=== PATIENT | female | born 1995 | race Caucasian/White ===

== ENCOUNTER 2017-01-16 16:19 | Emergency (ER) | payer SELFPAY ==
[2017-01-16 19:41] LABS: Bilirubin,Urine NEG (Negative); Blood,Urine SM (Negative); Ketones,Urine NEG (Negative); Leukocyte Esterase,Urine LG (Negative); Mucus,Urine FEW /HPF; Nitrite,Urine NEG (Negative); Urobilinogen,Urine < 2.0 mg/dL (<2.0)
[2017-01-16 19:42] LABS: WBC,Urine > 182.0 /HPF (0.0-6.0)
[2017-01-16] MEDS ORDERED: XYLOCAINE 1% MPF 5 mL INFILTRATI ONE (19:52)
[2017-01-16] MEDS ORDERED: ROCEPHIN IM ONE (19:52)
[2017-01-16] MEDS ORDERED: MACROBID PO ONE (19:57)
--- NOTE | 2017-01-16 20:00 | Emergency Department Report ---
ED Female HPI - General Chief complaint: Urogenital-Female Stated complaint: ABD PAIN Time Seen by Provider: 01/16/17 19:43 Source: patient Mode of arrival: Ambulatory Limitations: No Limitations - History of Present Illness Initial comments: 21-year-old female significant past medical history presents with 1-1/2-2 weeks of dysuria, slight increased urinary frequency and suprapubic burning sensation. Patient denies any vaginal discharge no vaginal bleeding. Denies any nausea or vomiting no fever or chills patient is awake alert and oriented 3 does not look toxic fully ambulatory fully lucid. Patient states that the primary reason she came today is because she felt slight burning sensation while P and today worse than she has no last week. Pain does not radiate, worse with urination. Patient denies any vaginal bleeding. Last menstrual period December 12 2016 Complaint: dysuria Onset/Timin -: week(s) Location: suprapubic Radiation: non-radiating Severity: mild Quality: burning Consistency: intermittent Worsens with: urination Associated Symptoms: denies other symptoms - Related Data Sexually active: Yes Previous Rx's Medication Instructions Recorded Last Taken Type Nitrofurantoin Worth/M-Cryst 100 mg PO Q12HR #14 capsule 01/16/17 Unknown Rx [Macrobid CAP] Phenazopyridine [Pyridium] 100 mg PO TID #6 tab 01/16/17 Unknown Rx Allergies Allergy/AdvReac Type Severity Reaction Status Date / Time No Known Allergies Allergy Unverified 01/16/17 17:18 ED Review of Systems ROS: Stated complaint: ABD PAIN Other details as noted in HPI Constitutional: denies: chills, fever Eyes: denies: eye pain, eye discharge, vision change ENT: denies: ear pain, throat pain Respiratory: denies: cough, shortness of breath, wheezing Cardiovascular: denies: chest pain, palpitations Endocrine: no symptoms reported Gastrointestinal: denies: abdominal pain, nausea, diarrhea Genitourinary: dysuria. denies: urgency, discharge Musculoskeletal: denies: back pain, joint swelling, arthralgia Skin: denies: rash, lesions Neurological: denies: headache, weakness, paresthesias Psychiatric: denies: anxiety, depression Hematological/Lymphatic: denies: easy bleeding, easy bruising ED Past Medical Hx - Past Medical History Previous Medical History?: No - Surgical History Past Surgical History?: No - Social History Smoking Status: Never Smoker Substance Use Type: None - Medications Home Medications: Home Medications Medication Instructions Recorded Confirmed Last Taken Type Nitrofurantoin Worth/M-Cryst 100 mg PO Q12HR #14 capsule 01/16/17 Unknown Rx [Macrobid CAP] Phenazopyridine [Pyridium] 100 mg PO TID #6 tab 01/16/17 Unknown Rx ED Physical Exam - General Limitations: No Limitations General appearance: alert, in no apparent distress - Head Head exam: Present: atraumatic, normocephalic - Eye Eye exam: Present: normal appearance, PERRL, EOMI - ENT ENT exam: Present: mucous membranes moist - Neck Neck exam: Present: normal inspection - Respiratory Respiratory exam: Present: normal lung sounds bilaterally. Absent: respiratory distress - Cardiovascular Cardiovascular Exam: Present: regular rate, normal rhythm. Absent: systolic murmur, diastolic murmur, rubs, gallop - GI/Abdominal GI/Abdominal exam: Present: soft, tenderness (mild suprapubic tenderness to deep palpation, no tenderness anywhere else in her abdomen and any of the 4 quadrants), normal bowel sounds - Extremities Exam Extremities exam: Present: normal inspection - Back Exam Back exam: Present: normal inspection - Neurological Exam Neurological exam: Present: alert, oriented X3 - Psychiatric Psychiatric exam: Present: normal affect, normal mood - Skin Skin exam: Present: warm, dry, intact, normal color. Absent: rash ED Course Vital Signs 01/16/17 17:19 Temperature 99.0 F Pulse Rate 65 Respiratory 18 Rate Blood Pressure 99/57 O2 Sat by Pulse 100 Oximetry ED Medical Decision Making - Medical Decision Making A/P: Acute cystitis 1-UA shows large WBCs and bacteria, Macrobid twice a day 7 days. sent 2-I educated patient on signs and symptoms of UTI and advised her to return to the ED if she begins to experience flank pain difficulty voiding nausea and vomiting or persistent fevers above 100.4 3-Pyridium prn x2 days 4- f/u with PMD Critical care attestation.: If time is entered above; I have spent that time in minutes in the direct care of this critically ill patient, excluding procedure time. ED Disposition Clinical Impression: Acute cystitis Qualifiers: Hematuria presence: without hematuria Qualified Code(s): N30.00 - Acute cystitis without hematuria Disposition: DC-01 TO HOME OR SELFCARE Is pt being admited?: No Does the pt Need Aspirin: No Condition: Stable Instructions: Urinary Tract Infection in Women (ED) Prescriptions: Nitrofurantoin Worth/M-Cryst [Macrobid CAP] 100 mg PO Q12HR #14 capsule Phenazopyridine [Pyridium] 100 mg PO TID #6 tab Referrals: PRIMARY CARE, [Primary Care Provider] - 3-5 Days [facility] [Provider Group] - 3-5 Days Forms: Accompanied Note, Work/School Release Form(ED) Time of Disposition: 20:05
[2017-01-16 20:11] VITALS: BP 114/69
== END 2017-01-16 20:10 | disposition home or self-care (01) ==
LOC: ED 16:19
DX: N30.00 Acute cystitis without hematuria (principal)
CPT/HCPCS: 81001; 81025; 87076; 87086; 87186; 99283